=== PATIENT | female | born 1940 | race Caucasian/White ===

== ENCOUNTER 2019-12-28 14:47 | Outpatient (CLI) | payer MEDICARE, SELFPAY ==
--- NOTE | ~2019-12-28 | XR_ITS ---
EXAMINATION: XR chest 2V DATE: 12/28/2019 15:09 INDICATION: Dysphagia. TECHNIQUE: Frontal and lateral views of the chest were obtained. COMPARISON: Chest 2 views 01/03/2018 FINDINGS: Calcified pulmonary nodules and calcified hilar and mediastinal lymph nodes are consistent with old granulomatous disease. No pleural effusion or pneumothorax. The heart size is normal. IMPRESSION: 1. No acute cardiopulmonary disease. Reviewed, dictated and finalized at location A. D UP COMEDIAN
[2019-12-28 15:02] LABS: Basophils Absolute Auto 0.03 K/mm3 (0.00-0.10); Basophils Percent Auto 0.4 % (0.0-1.0); Eosinophils Absolute Auto 0.18 K/mm3 (0.02-0.50); Eosinophils Percent Auto 2.6 % (1.0-6.0); Hematocrit 44.4 % (35.0-42.0); Hemoglobin 14.2 g/dL (11.7-13.8); Immature Granulocyte Absolute 0.03 K/mm3 (0.00-0.00); Immature Granulocyte Percent A 0.4 % (0.0-0.0); Lymphocytes Absolute Auto 1.23 K/mm3 (1.10-4.50); Mean Corpuscular Hemoglobin 27.8 pg (27.0-31.0); Mean Corpuscular Volume 86.9 fL (78.0-102.0); Mean Platelet Volume 8.5 fl (9.2-11.8); Monocytes Absolute Auto 0.48 K/mm3 (0.10-0.90); Neutrophils Absolute Auto 4.9 K/mm3 (1.7-7.2); Neutrophils Percent Auto 71.6 % (50.0-70.0); Platelet Count Result 313 K/mm3 (150-420); Red Blood Count 5.11 M/mm3 (4.20-5.40); Red Cell Distribution Width 13.9 % (11.6-14.4); White Blood Count 6.8 K/mm3 (4.8-10.8)
[2019-12-28 15:16] LABS: D Dimer 0.35 mg/L (0.19-0.50)
[2019-12-28 15:18] LABS: Chloride 104 mmol/L (98-108); Potassium 4.2 mmol/L (3.5-5.1); Sodium 142 mmol/L (136-145)
[2019-12-28 15:19] LABS: Alanine Aminotransferase 24 U/L (14-59); Albumin Level 4.2 g/dL (3.4-5.0); Alkaline Phosphatase 73 U/L (46-116); Anion Gap 10.2 mmol/L (7-16); Aspartate Amino Transferase 15 U/L (15-37); Bilirubin,Total 0.2 mg/dL (0.00-1.00); Blood Urea Nitrogen 27 mg/dL (7-18); Calcium 8.9 mg/dL (8.5-10.1); Carbon Dioxide 32 mmol/L (21-32); Estimated Glomerular Filt Rate 48; Glucose 105 mg/dL (70-99); Osmolality Calculated 299 mOsm/kg (285-295)
[2019-12-28 15:37] LABS: BNP 25 pg/mL (0-100)
== END 2019-12-28 14:48 | disposition home or self-care (01) ==
LOC: CHSLAB 14:52
PROVIDERS: PCP Internal Medicine; Visit Provider Internal Medicine
DX: R06.00 Dyspnea, unspecified (principal)
CPT/HCPCS: 36415; 71046; 80053; 83880; 85025; 85380; 93005

== ENCOUNTER 2020-01-04 08:23 | Outpatient (CLI) | payer MEDICARE, SELFPAY | END 2020-01-04 08:24 | disposition home or self-care (01) | PROVIDERS: PCP Internal Medicine; Visit Provider Internal Medicine | DX: R06.00 Dyspnea, unspecified (principal) | CPT/HCPCS: 94060; 94726; 94729; 95012 ==

== ENCOUNTER 2021-10-02 10:53 | Outpatient (CLI) | payer MEDICARE, SELFPAY ==
--- NOTE | ~2021-10-02 | XR_ITS ---
XR shoulder LT min 2V 10/02/2021 11:12 Indication: Left shoulder pain Procedure: 4 views left shoulder Comparison: No prior studies for comparison. 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 No fracture, subluxation o r dislocation. There is anatomic alignment of the acromioclavicular joint. Surrounding osseous struct ures and soft tissues are unremarkable. 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 Reviewed, dictated and finalized at location B. 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
== END 2021-10-02 10:54 | disposition home or self-care (01) ==
LOC: CHSIMG 10:56
PROVIDERS: PCP Internal Medicine; Visit Provider Internal Medicine
DX: M25.512 Pain in left shoulder (principal)
CPT/HCPCS: 73030

== ENCOUNTER 2022-05-02 11:08 | Outpatient (CLI) | payer MEDICARE, SELFPAY ==
[2022-05-02 11:35] LABS: Add Urine Microscopic? YES; Appearance Urine Clear (Clear); Bilirubin Urine Negative (Negative); Blood Urine Negative (Negative); Color Urine Yellow (Yellow); Glucose Urine UA 2+ (Negative); Ketones Urine Negative (Negative); Leukocyte Esterase Ur Trace (Negative); Nitrate Urine Negative (Negative); Protein Urine Negative (Negative); Urobilinogen Urine 0.2 mg/dL (0.2-1.0)
[2022-05-02 11:41] LABS: Bacteria Urine Trace /hpf; Mucus Urine Few /lpf; RBC Urine None seen /hpf (0-2); Squamous Epithelial Cell Urine Few /hpf (Few); WBC Urine None seen /hpf (0-3)
[2022-05-02 11:42] LABS: Creatinine Urine 99.64 mg/dL (40-278); MALB Creatinine Ratio 20.5 mg/g (0-30); Microalbumin Urine Random 20.5 mg/L
[2022-05-02 11:43] LABS: Alanine Aminotransferase 34 U/L (14-59); Alkaline Phosphatase 91 U/L (46-116); Anion Gap 6 mmol/L (8-16); Aspartate Amino Transferase 19 U/L (15-37); Bilirubin,Total 0.2 mg/dL (0.00-1.00); Blood Urea Nitrogen 22 mg/dL (7-18); Calcium 9.6 mg/dL (8.5-10.1); Carbon Dioxide 32 mmol/L (21-32); Chloride 100 mmol/L (98-108); Estimated Glomerular Filt Rate 41; Glucose 204 mg/dL (70-99); Osmolality Calculated 295 mOsm/kg (285-295); Sodium 138 mmol/L (136-145); Total Protein 7.5 g/dL (6.4-8.2)
[2022-05-02 11:47] LABS: Hemoglobin A1C 8.4 % (<5.7)
== END 2022-05-02 11:09 | disposition home or self-care (01) ==
LOC: CHSLAB 11:12
PROVIDERS: PCP Internal Medicine; Visit Provider Internal Medicine
DX: E11.9 Type 2 diabetes mellitus without complications (principal); I10 Essential (primary) hypertension
CPT/HCPCS: 36415; 80053; 81001; 82043; 83036

== ENCOUNTER 2022-12-01 07:55 | Outpatient (CLI) | payer MEDICARE, SELFPAY ==
--- NOTE | ~2022-12-01 | MR_ITS ---
EXAMINATION: MR brain/brain stem wo con DATE: 12/01/2022 09:58 INDICATION: Cognitive impairment. TECHNIQUE: Magnetic resonance imaging (MRI) of the brain and brainstem was performed without intraven ous contrast. COMPARISON: None. FINDINGS: There are scattered areas of nonspecific increased T2-weighted signal intensity in the cere bral white matter, which is within normal limits for the patient's age. There is no intracranial hemo rrhage, acute infarction, or abnormal intracranial mass lesion. The ventricles are normal in size. Th ere are likely changes of ocular lens replacement surgeries. There is mild mucosal thickening in the ethmoid sinuses. The mastoid air cells are normal. IMPRESSION: 1. Normal aging brain. Reviewed, dictated and finalized at location A. 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 Normal aging brain.
[2022-12-01 08:21] LABS: Basophils Absolute Auto 0.06 K/mm3 (0.00-0.10); Eosinophils Absolute Auto 0.18 K/mm3 (0.02-0.50); Eosinophils Percent Auto 2.9 % (1.0-6.0); Hematocrit 44.4 % (35.0-42.0); Hemoglobin 14.4 g/dL (11.7-13.8); Immature Granulocyte Absolute 0.02 K/mm3 (0.00-0.00); Immature Granulocyte Percent A 0.3 % (0.0-0.0); Lymphocytes Absolute Auto 1.08 K/mm3 (1.10-4.50); Lymphocytes Percent Auto 17.3 % (18.0-42.0); Mean Corpuscular HGB Conc 32.4 g/dL (32.0-36.0); Mean Corpuscular Hemoglobin 27.4 pg (27.0-31.0); Mean Corpuscular Volume 84.6 fL (78.0-102.0); Mean Platelet Volume 8.6 fl (9.2-11.8); Monocytes Percent Auto 6.4 % (2.0-11.0); Neutrophils Absolute Auto 4.5 K/mm3 (1.7-7.2); Neutrophils Percent Auto 72.1 % (50.0-70.0); Platelet Count Result 347 K/mm3 (150-420); Red Blood Count 5.25 M/mm3 (4.20-5.40); Red Cell Distribution Width 14.5 % (11.6-14.4); White Blood Count 6.3 K/mm3 (4.8-10.8)
[2022-12-01 08:28] LABS: Hemoglobin A1C 5.6 % (<5.7)
[2022-12-01 08:47] LABS: Alanine Aminotransferase 28 U/L (14-59); Albumin Level 3.9 g/dL (3.4-5.0); Alkaline Phosphatase 59 U/L (46-116); Anion Gap 6 mmol/L (8-16); Aspartate Amino Transferase 16 U/L (15-37); Bilirubin,Total 0.3 mg/dL (0.00-1.00); Blood Urea Nitrogen 24 mg/dL (7-18); Calcium 8.9 mg/dL (8.5-10.1); Carbon Dioxide 33 mmol/L (21-32); Chloride 104 mmol/L (98-108); Estimated Glomerular Filt Rate 47; Glucose 112 mg/dL (70-99); NT Pro B Type Natriuretic Pept 301 pg/mL (0-450); Osmolality Calculated 301 mOsm/kg (285-295); Potassium 4.2 mmol/L (3.5-5.1); Sodium 143 mmol/L (136-145); Thyroid Stimulating Hormone 2.27 uIU/mL (0.36-3.74); Total Protein 7.4 g/dL (6.4-8.2)
[2022-12-04 09:34] LABS: Methylmalonic Acid 603 nmol/L (87-318)
== END 2022-12-01 07:56 | disposition home or self-care (01) ==
LOC: CHSIMG 07:57
PROVIDERS: PCP Internal Medicine; Visit Provider Internal Medicine
DX: G31.84 Mild cognitive impairment of uncertain or unknown etiology (principal); I50.9 Heart failure, unspecified; E11.9 Type 2 diabetes mellitus without complications
CPT/HCPCS: 36415; 70551; 80053; 83036; 83735; 83880; 83921; 84443; 85025

== ENCOUNTER 2023-01-14 08:00 | Outpatient (CLI) | payer MEDICARE, SELFPAY ==
--- NOTE | ~2023-01-14 | CT_ITS ---
EXAMINATION: CT abdomen pelvis wo/w con DATE: 01/14/2023 09:06 INDICATION: Gross hematuria. TECHNIQUE: Computed tomography (CT) of the abdomen and pelvis was performed without and with intraven ous contrast using a total of 230 mL Omnipaque-350 intravenous contrast with a double-bolus technique for simultaneous opacification of the renal parenchyma and renal collecting system. Automated exposu re control and iterative reconstruction technique were employed. The dose-length product was 2089 mGy -cm. COMPARISON: None FINDINGS: The visualized portions of the lung bases demonstrate mild atelectasis. Calcified left lung nodules a re consistent with old granulomatous disease. There is a 6 mm nodule in left lower lobe. No pleural e ffusion. The heart size is normal. No pericardial effusion. Calcifications in the liver and spleen ar e consistent with old granulomatous disease. There is a focal steatosis in the liver. There are 2 mas ses in right hepatic lobe with mild contrast enhancement with the larger measuring 2.1 cm. The gallbl adder is normal. The pancreas, adrenal glands, are normal. There is a 1.3 cm mass in right kidney erma t is indeterminate for contrast enhancement. There is no urolithiasis. There is a 5 mm cyst in left k idney. The ureters are not well opacified distally, but are normal. The bladder is normal. There is d iverticulosis of the colon without evidence of diverticulitis. There are no dilated loops of bowel. T he appendix is not visualized. There are no pathologically enlarged lymph nodes. There is no free int raperitoneal fluid. There are bridging endplate osteophytes at multiple levels in the spine, consiste nt with diffuse idiopathic skeletal hyperostosis (DISH). There is mild lumbar spondylosis. IMPRESSION: 1. 6 mm pulmonary nodule, probably benign. Noncontrast low-dose chest CT is recommended in 6-12 month s. 2. Two liver masses measuring up to 2.1 cm, which may be benign or malignant. Abdomen MRI without and with contrast is recommended. 3. 1.3 cm right kidney mass, which is indeterminate for contrast enhancement. This finding may be dmitri ign or malignant. Abdomen MRI without and with contrast is recommended. Reviewed, dictated and finalized at location A. IMPRESSION: 1. 6 mm pulmonary nodule, probably benign. Noncontrast low-dose chest CT is rec ommended in 6-12 months. 2. Two liver masses measuring up to 2.1 cm, which may be benign or malignant. A bdomen MRI without and with contrast is recommended. 3. 1.3 cm right kidney mass, which is indeterminate for contrast enhancement. T his finding may be benign or malignant. Abdomen MRI without and with contrast i s recommended.
[2023-01-14 08:29] LABS: Estimated Glomerular Filt Rate 42
== END 2023-01-14 08:01 | disposition home or self-care (01) ==
LOC: CHSIMG 08:02
PROVIDERS: PCP Internal Medicine; Visit Provider Internal Medicine
DX: R31.9 Hematuria, unspecified (principal); R91.1 Solitary pulmonary nodule; R16.0 Hepatomegaly, not elsewhere classified; N28.89 Other specified disorders of kidney and ureter
CPT/HCPCS: 74178; Q9967

== ENCOUNTER 2023-01-19 07:36 | Outpatient (CLI) | payer MEDICARE, SELFPAY ==
--- NOTE | ~2023-01-19 | MR_ITS ---
EXAMINATION: MR abdomen wo/w con DATE: 01/19/2023 09:17 INDICATION: Liver mass. Right renal mass. TECHNIQUE: Magnetic resonance imaging (MRI) of the abdomen was performed without and with 10 mL Multi joy intravenous contrast. Sequences included coronal T2-weighted SS-FSE, coronal and axial FS 2D-F IESTA, axial STIR FSE, axial T2-weighted SS-FSE, axial T2-weighted FS SS-FSE, axial diffusion-weighte d SE, axial dual-echo T1-weighted FSPGR, and axial and coronal T1-weighted LAVA. Postcontrast axial T 1-weighted LAVA images were obtained in a time course. Postcontrast coronal T1-weighted LAVA images w ere obtained. COMPARISON: CT abdomen pelvis dated 01/14/2023 FINDINGS: Heart size is normal. No pericardial or pleural effusion. There are couple peripheral T2 hyperintense lesions in segment 5 of the liver measuring 1.4 cm and at the apex of the dome of the liver measurin g 2.1 cm which demonstrates peripheral enhancement and central nonenhancement on the 5 and 10 minute delayed images most consistent with very slowly filling hemangiomas. There is an additional well-defi harlan 6 mm T2 hyperintense hemangioma in segment 2B of the liver which demonstrate persistent enhanceme nt on the 5 and 10 minute delayed images. No other hepatic lesions identified. Gallbladder, pancreas, spleen and bilateral adrenal glands are normal. There are couple small T2 hyperintense cysts at the upper pole of the right kidney, the smaller and more cephalad measuring approximately 9 mm with thin peripheral wall demonstrating discernible not measurable enhancement (Bosniak 2) and the more caudal and more exophytic cyst measuring 10 mm with surrounding less hyperintense T2 signal and with slightl y increased T1 signal intensity but no discernible enhancement consistent with a proteinaceous/hemorr hagic cyst, also Bosniak 2. Visualized portion of the bowels are unremarkable. No pathologically enla rged abdominal lymphadenopathy. Mild thoracolumbar spondylosis with normal marrow signal throughout. IMPRESSION: 1. 3 hepatic lesions as detailed above with contrast-enhancement patterns most consistent with alexi iomas. 2. A couple benign 9 mm and 10 mm Bosniak 2 cystic lesions in the right kidney which require no furth er follow-up. Reviewed, dictated and finalized at location A. IMPRESSION: 1. 3 hepatic lesions as detailed above with contrast-enhancement patterns most consistent with hemangiomas. 2. A couple benign 9 mm and 10 mm Bosniak 2 cystic lesions in the right kidney which require no further follow-up.
== END 2023-01-19 07:37 | disposition home or self-care (01) ==
LOC: CHSIMG 07:38
PROVIDERS: PCP Internal Medicine; Visit Provider Internal Medicine
DX: R16.0 Hepatomegaly, not elsewhere classified (principal); N28.89 Other specified disorders of kidney and ureter
CPT/HCPCS: 74183; A9577

== ENCOUNTER 2023-04-08 14:33 | Outpatient (CLI) | payer MEDICARE, SELFPAY ==
[2023-04-08 14:55] LABS: Basophils Absolute Auto 0.05 K/mm3 (0.00-0.10); Basophils Percent Auto 0.6 % (0.0-1.0); Eosinophils Percent Auto 2.4 % (1.0-6.0); Hematocrit 46.9 % (35.0-42.0); Hemoglobin 14.1 g/dL (11.7-13.8); Immature Granulocyte Absolute 0.03 K/mm3 (0.00-0.00); Immature Granulocyte Percent A 0.4 % (0.0-0.0); Lymphocytes Absolute Auto 1.41 K/mm3 (1.10-4.50); Lymphocytes Percent Auto 17.2 % (18.0-42.0); Mean Corpuscular HGB Conc 30.1 g/dL (32.0-36.0); Mean Corpuscular Hemoglobin 25.9 pg (27.0-31.0); Mean Corpuscular Volume 86.2 fL (78.0-102.0); Mean Platelet Volume 8.9 fl (9.2-11.8); Monocytes Absolute Auto 0.54 K/mm3 (0.10-0.90); Monocytes Percent Auto 6.6 % (2.0-11.0); Neutrophils Percent Auto 72.8 % (50.0-70.0); Platelet Count Result 348 K/mm3 (150-420); Red Blood Count 5.44 M/mm3 (4.20-5.40); Red Cell Distribution Width 14.3 % (11.6-14.4); White Blood Count 8.2 K/mm3 (4.8-10.8)
[2023-04-08 15:04] LABS: Hemoglobin A1C 5.7 % (<5.7)
[2023-04-08 15:27] LABS: Alanine Aminotransferase 27 U/L (14-59); Alkaline Phosphatase 79 U/L (46-116); Anion Gap 8 mmol/L (8-16); Aspartate Amino Transferase 16 U/L (15-37); Bilirubin,Total 0.1 mg/dL (0.00-1.00); Blood Urea Nitrogen 27 mg/dL (7-18); Calcium 9.3 mg/dL (8.5-10.1); Carbon Dioxide 33 mmol/L (21-32); Chloride 101 mmol/L (98-108); Cholesterol 172 mg/dL (0-200); Estimated Glomerular Filt Rate 40; Glucose 87 mg/dL (70-99); HDL Direct 45 mg/dL (40-60); LDL Cholesterol Calculated 91 mg/dL (<130); Osmolality Calculated 298 mOsm/kg (285-295); Potassium 4.3 mmol/L (3.5-5.1); Sodium 142 mmol/L (136-145); Total Protein 7.1 g/dL (6.4-8.2); Triglycerides 182 mg/dL (0-150)
== END 2023-04-08 14:34 | disposition home or self-care (01) ==
LOC: CHSLAB 14:37
PROVIDERS: PCP Internal Medicine; Visit Provider Internal Medicine
DX: E11.9 Type 2 diabetes mellitus without complications (principal); E78.5 Hyperlipidemia, unspecified
CPT/HCPCS: 36415; 80053; 80061; 83036; 85025

== ENCOUNTER 2023-07-29 14:50 | Outpatient (CLI) | payer MEDICARE, SELFPAY ==
[2023-07-29 15:21] LABS: Basophils Absolute Auto 0.06 K/mm3 (0.00-0.10); Basophils Percent Auto 0.6 % (0.0-1.0); Hemoglobin 13.2 g/dL (11.7-13.8); Immature Granulocyte Absolute 0.05 K/mm3 (0.00-0.00); Immature Granulocyte Percent A 0.5 % (0.0-0.0); Lymphocytes Absolute Auto 1.47 K/mm3 (1.10-4.50); Lymphocytes Percent Auto 14.4 % (18.0-42.0); Mean Corpuscular HGB Conc 30.7 g/dL (32.0-36.0); Mean Corpuscular Hemoglobin 26.8 pg (27.0-31.0); Mean Corpuscular Volume 87.2 fL (78.0-102.0); Mean Platelet Volume 8.6 fl (9.2-11.8); Monocytes Absolute Auto 0.53 K/mm3 (0.10-0.90); Monocytes Percent Auto 5.2 % (2.0-11.0); Neutrophils Absolute Auto 7.9 K/mm3 (1.7-7.2); Neutrophils Percent Auto 77.3 % (50.0-70.0); Platelet Count Result 371 K/mm3 (150-420); Red Blood Count 4.93 M/mm3 (4.20-5.40); Red Cell Distribution Width 14.9 % (11.6-14.4); White Blood Count 10.2 K/mm3 (4.8-10.8)
[2023-07-29 16:18] LABS: Alanine Aminotransferase 32 U/L (14-59); Albumin Level 3.5 g/dL (3.4-5.0); Alkaline Phosphatase 94 U/L (46-116); Anion Gap 10 mmol/L (8-16); Aspartate Amino Transferase 14 U/L (15-37); Bilirubin,Total 0.1 mg/dL (0.00-1.00); Blood Urea Nitrogen 30 mg/dL (7-18); Calcium 9.4 mg/dL (8.5-10.1); Carbon Dioxide 30 mmol/L (21-32); Chloride 103 mmol/L (98-108); Estimated Glomerular Filt Rate 34; Glucose 185 mg/dL (70-99); Osmolality Calculated 307 mOsm/kg (285-295); Potassium 4.4 mmol/L (3.5-5.1); Sodium 143 mmol/L (136-145); Total Protein 6.7 g/dL (6.4-8.2)
[2023-07-29 22:19] LABS: NT Pro B Type Natriuretic Pept 471 pg/mL (0-450)
[2023-07-30 11:11] LABS: Hemoglobin A1C 6.6 % (<5.7)
== END 2023-07-29 14:51 | disposition home or self-care (01) ==
LOC: CHSLAB 14:53
PROVIDERS: PCP Internal Medicine; Visit Provider Internal Medicine
DX: J18.9 Pneumonia, unspecified organism (principal); I50.9 Heart failure, unspecified; R73.01 Impaired fasting glucose
CPT/HCPCS: 36415; 80053; 83036; 83880; 85025

== ENCOUNTER 2023-08-17 09:02 | Outpatient (CLI) | payer MEDICARE, SELFPAY ==
[2023-08-17 09:37] LABS: Add Urine Microscopic? YES; Appearance Urine Clear (Clear); Basophils Absolute Auto 0.05 K/mm3 (0.00-0.10); Basophils Percent Auto 0.8 % (0.0-1.0); Bilirubin Urine Negative (Negative); Blood Urine Negative (Negative); Color Urine Light Yellow (Yellow); Eosinophils Absolute Auto 0.24 K/mm3 (0.02-0.50); Eosinophils Percent Auto 3.9 % (1.0-6.0); Glucose Urine UA Negative (Negative); Hematocrit 42.4 % (35.0-42.0); Hemoglobin 13.1 g/dL (11.7-13.8); Immature Granulocyte Absolute 0.03 K/mm3 (0.00-0.00); Immature Granulocyte Percent A 0.5 % (0.0-0.0); Ketones Urine Negative (Negative); Leukocyte Esterase Ur 1+ (Negative); Lymphocytes Absolute Auto 1.38 K/mm3 (1.10-4.50); Lymphocytes Percent Auto 22.2 % (18.0-42.0); Mean Corpuscular HGB Conc 30.9 g/dL (32.0-36.0); Mean Corpuscular Volume 87.4 fL (78.0-102.0); Mean Platelet Volume 8.7 fl (9.2-11.8); Monocytes Absolute Auto 0.39 K/mm3 (0.10-0.90); Monocytes Percent Auto 6.3 % (2.0-11.0); Neutrophils Absolute Auto 4.1 K/mm3 (1.7-7.2); Neutrophils Percent Auto 66.3 % (50.0-70.0); Nitrate Urine Negative (Negative); Platelet Count Result 278 K/mm3 (150-420); Protein Urine Negative (Negative); Red Blood Count 4.85 M/mm3 (4.20-5.40); Red Cell Distribution Width 15.3 % (11.6-14.4); Urobilinogen Urine 0.2 mg/dL (0.2-1.0); White Blood Count 6.2 K/mm3 (4.8-10.8)
[2023-08-17 09:38] LABS: Bacteria Urine Trace /hpf; RBC Urine None seen /hpf (0-2); Squamous Epithelial Cell Urine Few /hpf (Few)
[2023-08-17 09:51] LABS: Hemoglobin A1C 6.5 % (<5.7)
[2023-08-17 10:11] LABS: Alanine Aminotransferase 28 U/L (14-59); Albumin Level 3.7 g/dL (3.4-5.0); Alkaline Phosphatase 63 U/L (46-116); Anion Gap 8 mmol/L (8-16); Aspartate Amino Transferase 15 U/L (15-37); Bilirubin,Total 0.3 mg/dL (0.00-1.00); Blood Urea Nitrogen 27 mg/dL (7-18); Calcium 9.3 mg/dL (8.5-10.1); Carbon Dioxide 31 mmol/L (21-32); Chloride 103 mmol/L (98-108); Cholesterol 119 mg/dL (0-200); Estimated Glomerular Filt Rate 46; Glucose 103 mg/dL (70-99); HDL Direct 35 mg/dL (40-60); LDL Cholesterol Calculated 51 mg/dL (<130); Osmolality Calculated 299 mOsm/kg (285-295); Potassium 4.4 mmol/L (3.5-5.1); Sodium 142 mmol/L (136-145); Total Protein 6.5 g/dL (6.4-8.2); Triglycerides 163 mg/dL (0-150)
== END 2023-08-17 09:03 | disposition home or self-care (01) ==
LOC: CHSLAB 09:03
PROVIDERS: PCP Internal Medicine; Visit Provider Internal Medicine
DX: E11.9 Type 2 diabetes mellitus without complications (principal); I10 Essential (primary) hypertension; R79.89 Other specified abnormal findings of blood chemistry
CPT/HCPCS: 36415; 80053; 80061; 81001; 83036; 84443; 85025